=== PATIENT | female | born 1950 | race Caucasian/White ===

== ENCOUNTER 2018-06-28 07:23 | Day surgery (SDC) | payer MEDICARE ==
[2018-06-26 14:58] VITALS: BMI 22.6
[~2018-06-28 07:23] MED LIST: LACTATED RINGERS 1,000 ML IV SCH; LIDOCAINE 1% 20 ML VIAL (10MG/ML) FOR IV START INTRADERMA PRN
[2018-06-28 07:46] VITALS: RESP 16; TEMP 97.1
[2018-06-28] MEDS ORDERED: PROPOFOL 10 MG/ML 20 ML VIAL IV ONE (08:11)
[2018-06-28] MEDS ORDERED: MIDAZOLAM 2 MG/2 ML VIAL ONE (08:11)
[2018-06-28] MEDS ORDERED: fentaNYL (PF) 50 MCG/ML 2 ML AMP ONE (08:11)
--- NOTE | 2018-06-28 08:39 | P.PCN ---
Date of Procedure: 06/28/18 Procedure(s) Performed: BRIEF HISTORY: Patient is a 68-year-old [place] female, scheduled for an elective colonoscopy as a part of value should of prior history of colon polyps. 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 PROCEDURE PERFORMED: Colonoscopy. PREOPERATIVE DIAGNOSIS: History of colon polyps. IV sedation per Anesthesia. PROCEDURE: After informed consent was obtained, the patient, was brought into the endoscopy unit. IV sedation was administered by Anesthesia under continuous monitoring. Digital rectal examination was normal. Initially the Olympus CF- 160 flexible video pediatric colonoscope was then inserted in the rectum, gradually advanced into the cecum with mild to moderate difficulty. Careful examination was performed as the scope was gradually being withdrawn. Ileocecal valve and the appendiceal orifice were visualized and appeared normal. Prep was excellent. Mucosa of the cecum, ascending colon, transverse colon, descending colon, sigmoid colon, and rectum appeared normal. Retroflexion was performed in the rectum and no lesions were seen. The patient tolerated the procedure well. IMPRESSION: Normal-appearing colon from rectum to cecum with no evidence of colorectal neoplasia RECOMMENDATIONS: Findings of this examination were discussed with the patient as well as her family. She was advised to have a repeat [place] colonoscopy in 5 years from now because of the prior history of colon polyps.
[2018-06-28 08:56] VITALS: BP 109/67; PULSE 50
== END 2018-06-28 09:23 | disposition home or self-care (01) ==
LOC: ORWHC2ENDO 07:23
PROVIDERS: ATTEND Internal Medicine Gastroenterology
DX: Z12.11 Encounter for screening for malignant neoplasm of colon (principal); Z86.010 Personal history of colon polyps; Z85.3 Personal history of malignant neoplasm of breast; Z92.3 Personal history of irradiation; M19.90 Unspecified osteoarthritis, unspecified site; Z79.1 Long term (current) use of non-steroidal anti-inflammatories (NSAID)
CPT/HCPCS: J2250; J3010; J2704; G0105; 45378